=== PATIENT | male | born 1975 | race Caucasian/White ===

== ENCOUNTER 2016-11-05 16:18 | Inpatient (IN) | payer MEDICAID ==
[~2016-11-05] VITALS: Ht 167.6 cm; Wt 81.2 kg
[2016-11-05] MEDS ORDERED: SOD CHLORIDE 0.9% 1,000 ML IV STA (16:46)
--- NOTE | 2016-11-05 16:54 | ERD ---
ER Documentation Chief Complaint Date/Time DATE: 11/05/16 TIME: 16:50 Chief Complaint FEVER X2 WKS, POSSIBLE UTI HPI This patient is a 41-year-old male with past medical history of recurrent urinary tract infections presenting to the emergency department with complaints of dysuria ongoing intermittently for the past 2 weeks. Symptoms are worsening. The patient also reports fevers. He states he feels a burning sensation in his penis constantly, but this worsens with urination. These are similar symptoms he experienced in the past with urinary tract infections. Symptoms are relieved temporarily with ibuprofen. Last ibuprofen was taken approximately 5 hours ago. He states he took 300 mg at that time. He denies hematuria, flank pain, testicular pain, testicular trauma, nausea, vomiting, diarrhea, and other symptoms. He is not currently sexually active. Last sexual encounter was approximately 2 years ago. No other symptoms to report currently. He denies having a workup in the past for possible etiology of his recurrent UTIs. ROS All systems reviewed and are negative except as per history of present illness. Allergies Allergies: Coded Allergies: No Known Allergy (Unverified , 11/05/16) PMhx/Soc History of Surgery: No Anesthesia Reaction: No Hx Neurological Disorder: No Hx Respiratory Disorders: No Hx Cardiac Disorders: No Hx Psychiatric Problems: No Hx Miscellaneous Medical Probl: Yes (HTN, previous uti's) Hx Alcohol Use: No Hx Substance Use: No Hx Tobacco Use: No Smoking Status: Never smoker Physical Exam Vitals Vital Signs Date Time Temp Pulse Resp B/P Pulse Ox O2 Delivery O2 Flow Rate FiO2 11/05/16 16:21 103.3 122 20 131/73 97 Physical Exam Const: Ill-appearing male in no acute distress. Head: Atraumatic Eyes: Normal Conjunctiva ENT: Normal External Ears, Nose and Mouth. Neck: Full range of motion..~ No meningismus. Resp: Clear to auscultation bilaterally Cardio: Regular rate and rhythm, no murmurs Abd: Soft, mild tenderness to palpation of the left lower quadrant but no rebound tenderness or guarding, there is no McBurney's point tenderness, non distended. Normal bowel sounds Skin: No petechiae or rashes Back: No midline or flank tenderness Ext: No cyanosis, or edema Neur: Awake and alert Psych: Normal Mood and Affect Result Diagram: 11/05/16 1700 11/05/16 1700 Results 24 hrs Laboratory Tests Test 11/05/16 17:00 White Blood Count 16.310^3/ul Red Blood Count 3.8110^6/ul Hemoglobin 11.2g/dl Hematocrit 33.3% Mean Corpuscular Volume 87.4fl Mean Corpuscular Hemoglobin 29.4pg Mean Corpuscular Hemoglobin Concent 33.6g/dl Red Cell Distribution Width 12.2% Platelet Count 18627^3/UL Mean Platelet Volume 11.6fl Neutrophils % 84.6% Lymphocytes % 9.1% Monocytes % 5.5% Eosinophils % 0.1% Basophils % 0.3% Nucleated Red Blood Cells % 0.0/100WBC Neutrophils # 13.810^3/ul Lymphocytes # 1.510^3/ul Monocytes # 0.910^3/ul Eosinophils # 0.010^3/ul Basophils # 0.110^3/ul Nucleated Red Blood Cells # 0.010^3/ul Prothrombin Time 13.7Sec Prothrombin Time Ratio 1.1 INR International Normalized Ratio 1.05 Activated Partial Thromboplast Time 32.5Sec Urine Color YELLOW Urine Clarity CLOUDY Urine pH 5.0 Urine Specific [place] 1.014 Urine Ketones NEGATIVEmg/dL Urine Nitrite NEGATIVEmg/dL Urine Bilirubin NEGATIVEmg/dL Urine Urobilinogen NEGATIVEmg/dL Urine Leukocyte Esterase 2+Magan/ul Urine Microscopic RBC 12/HPF Urine Microscopic WBC > 182/HPF Urine Bacteria FEW/HPF Urine Hemoglobin 1+mg/dL Urine Glucose NEGATIVEmg/dL Urine Total Protein 2+mg/dl Sodium Level 140mmol/L Potassium Level 3.5mmol/L Chloride Level 96mmol/L Carbon Dioxide Level 23mmol/L Anion Gap 25 Blood Urea Nitrogen 27mg/dl Creatinine 2.06mg/dl Glucose Level 111mg/dl Lactic Acid Level 0.9mmol/L Calcium Level 9.8mg/dl Total Bilirubin 0.6mg/dl Direct Bilirubin 0.00mg/dl Indirect Bilirubin 0.6mg/dl Aspartate Amino Transf (AST/SGOT) 22IU/L Alanine Aminotransferase (ALT/SGPT) 29IU/L Alkaline Phosphatase 111IU/L Total Protein 8.4g/dl Albumin 4.9g/dl Globulin 3.50g/dl Albumin/Globulin Ratio 1.40 Lipase 42U/L Current Medications Medications (Trade) Dose Ordered Sig/Nay Route PRN Reason Start Time Stop Time Status Last Admin Dose Admin Sodium Chloride (NS) 1,000 ml @ 1,000 mls/hr Q1H STAT IV 11/05/16 16:46 11/05/16 17:45 DC 11/05/16 16:53 Ibuprofen (Motrin) 600 mg ONCE ONCE PO 11/05/16 17:00 11/05/16 17:01 DC 11/05/16 16:53 Acetaminophen (Tylenol Tab) 650 mg ONCE ONCE PO 11/05/16 17:00 11/05/16 17:01 DC 11/05/16 16:53 IV Flush 10 ml 10 ml STK-MED ONCE .ROUTE 11/05/16 17:35 11/05/16 17:36 DC Sodium Chloride (NS) 100 ml @ ud STK-MED ONCE .ROUTE 11/05/16 17:35 11/05/16 17:36 DC Iohexol 150 ml 150 ml STK-MED ONCE .ROUTE 11/05/16 17:35 11/05/16 17:36 DC Sodium Chloride (NS) 1,000 ml @ 1,000 mls/hr Q1H ONCE IV 11/05/16 18:30 11/05/16 19:29 11/05/16 18:27 Sodium Chloride 2510 ml 2,510 ml BOLUS OVER 2 HOURS STAT IV* 11/05/16 18:35 11/05/16 18:37 DC Cefepime HCl (Maxipime 2gm/50 ml (Pmx)) 50 ml @ 100 mls/hr ONCE STAT IVPB 11/05/16 18:35 11/05/16 19:04 Procedures/MDM EMERGENCY DEPARTMENT COURSE / MEDICAL DECISION MAKING: This is a 41-year-old male who comes to the emergency room secondary to complaints of fever and dysuria The patient was given p.o. Tylenol, p.o. ibuprofen, IV fluids in the department. On re-evaluation, the patient was feeling improved. Lab results reviewed. CBC: [] Chemistry: [] UA: [] Lipase: [] Lactic: [] Radiology: [] The primary diagnosis is []. Secondary diagnosis is [] I have low suspicion for [] at this time. Discharge: I have discussed the lab results and diagnostic findings with the patient and answered any questions or concerns. The patient was discharged with a prescription for []. The patient was advised to followup with their PMD in 1- 2 days and to return to the Emergency Department if there are any new or worsening symptoms. The patient understood and agreed with the diagnosis, treatment and plan. The patient is stable for discharge at this time. Departure Diagnosis: Primary Impression: Urinary tract bacterial infections Condition: WILLIAM Dey PA-C Nov 05, 2016 16:54
[2016-11-05] MEDS ORDERED: IBUPROFEN 600 MG TAB PO ONE (17:00)
[2016-11-05] MEDS ORDERED: ACETAMINOPHEN 325 MG TAB PO ONE (17:00)
[2016-11-05 17:24] LABS: ADD SCAN DIFF NO
[2016-11-05 17:26] LABS: BASOPHIL # 0.1 10^3/ul (0.0-0.1); BASOPHILS % 0.3 % (0.0-2.0); EOSINOPHILS % 0.1 % (0.0-7.0); HEMATOCRIT 33.3 % (42.0-52.0); HEMOGLOBIN 11.2 g/dl (14.0-18.0); LYMPHOCYTES # 1.5 10^3/ul (0.8-2.9); LYMPHOCYTES % 9.1 % (15.0-51.0); MEAN CORPUSCULAR HEMOGLOBIN 29.4 pg (29.0-33.0); MEAN CORPUSCULAR HGB CONC 33.6 g/dl (32.0-37.0); MEAN CORPUSCULAR VOLUME 87.4 fl (82.0-101.0); MEAN PLATELET VOLUME 11.6 fl (7.4-10.4); MONOCYTE # 0.9 10^3/ul (0.3-0.9); MONOCYTES % 5.5 % (0.0-11.0); NEUTROPHIL # 13.8 10^3/ul (1.6-7.5); NEUTROPHILS % 84.6 % (39.0-77.0); PLATELET COUNT 287 10^3/UL (140-415); RED BLOOD COUNT 3.81 10^6/ul (4.70-6.10); RED CELL DISTRIBUTION WIDTH 12.2 % (11.5-14.5); WHITE BLOOD COUNT 16.3 10^3/ul (4.8-10.8)
[2016-11-05 17:27] LABS: ADD UMIC YES; UR ASCORBIC ACID NEGATIVE (NEGATIVE); UR BACTERIA FEW /HPF (NONE SEEN); UR BILIRUBIN (Dip) NEGATIVE (NEGATIVE); UR BLOOD (Dip) 1+ mg/dL (NEGATIVE); UR CLARITY CLOUDY (CLEAR); UR COLOR YELLOW (YELLOW); UR GLUCOSE (Dip) NEGATIVE (NEGATIVE); UR KETONES (Dip) NEGATIVE (NEGATIVE); UR LEUKOCYTE ESTERASE (Dip) 2+ Leu/ul (NEGATIVE); UR NITRITE (Dip) NEGATIVE (NEGATIVE); UR RBC 12 /HPF (0-5); UR SPECIFIC GRAVITY (Dip) 1.014 (1.003-1.030); UR TOTAL PROTEIN (Dip) 2+ mg/dl (NEGATIVE); UR UROBILINOGEN (Dip) NEGATIVE (NEGATIVE)
[2016-11-05] MEDS ORDERED: SOD CHLORIDE 0.9% 100 ML ONE (17:35)
[2016-11-05] MEDS ORDERED: IOHEXOL 300MG/ML 150 ML BTL ONE (17:35)
[2016-11-05 17:42] LABS: INR 1.05; PARTIAL THROMBOPLASTIN TIME 32.5 Sec (25.0-35.0); PROTIME 13.7 Sec (12.2-14.2); PT RATIO 1.1
[2016-11-05 17:44] LABS: ALBUMIN 4.9 g/dl (3.3-4.9); ALBUMIN/GLOBULIN RATIO 1.4; BILIRUBIN,INDIRECT 0.6 mg/dl (0-1.1); BILIRUBIN,TOTAL 0.6 mg/dl (0.2-1.3); CALCIUM 9.8 mg/dl (8.4-10.2); CREATININE 2.06 mg/dl (0.61-1.24); POTASSIUM 3.5 mmol/L (3.5-5.1); TOTAL PROTEIN 8.4 g/dl (6.1-8.1)
--- NOTE | 2016-11-05 18:23 | RADRPT ---
PROCEDURE: CT Abdomen and Pelvis without contrast. CLINICAL INDICATION: Abdominal pain with dysuria. History of UTI. TECHNIQUE: CT scan of the abdomen and pelvis without contrast was performed without intravenous co ntrast. Coronal and sagittal reformatted images were obtained from the axial source images. Images were reviewed on a high-resolution PACS workstation. CTDI 10 mGy, DLP 545 mGy-cm One or more of the following dose reduction techniques were used: Automated exposure control Adjustment of the mA and/or kV according to patient size. Use of iterative reconstruction technique. COMPARISON: None. FINDINGS: The lung bases are clear. The heart size is normal. The aorta and its branches are normal in size and caliber. The kidneys are symmetric in size and density. There is mild bilateral perinephric fat stranding. Th ere is no nephroureterolithiasis or hydronephrosis. The ureters are normal in course and caliber. Evaluation of solid organs is limited due to the lack of intravenous contrast. However, the liver, g allbladder, pancreas, and adrenal glands are unremarkable. Several scattered punctate calcification s are visualized throughout the spleen. Evaluation of the gastrointestinal tract is limited due to the lack of oral contrast. The distal es ophagus is unremarkable. The stomach is partially decompressed. The small bowel loops are normal in caliber without evidence of small bowel obstruction. The colon is mostly decompressed. The append ix is not definitively visualized. There is no free intraperitoneal fluid or pneumoperitoneum. There is no mesenteric, retroperitoneal, or pelvic lymphadenopathy. The bladder is partially decompressed although grossly unremarkable. The prostate is unremarkable. The seminal vesicles are mildly prominent although homogeneous in appearance without a cyst or heter ogeneous mass. There is no pelvic free fluid. There are no acute fractures. There is minimal left convex curvature of the lumbar spine. RPTAT: ZZ IMPRESSION: 1. No acute intra-abdominal abnormality. No nephroureterolithiasis or hydronephrosis. 2. Scattered punctate calcifications throughout the spleen which can be seen with granulomatous dis ease. .Jayla John MD, Date Time Electronically viewed and signed by .Jayla John MD, on 11/05/2016 18:23 .T/
[2016-11-05] MEDS ORDERED: SOD CHLORIDE 0.9% 1,000 ML IV ONE (18:30)
[2016-11-05] MEDS ORDERED: SODIUM CHLORIDE 0.9% 1L BAG IV* STA (18:35)
[2016-11-05] MEDS ORDERED: CEFEPIME 2GM/50 ML (PMX) 50 ML IVPB STA (18:35)
[2016-11-05 19:00] VITALS: TEMP 99.5
--- NOTE | 2016-11-05 19:07 | ERA ---
ER Documentation Chief Complaint Date/Time DATE: 11/05/16 TIME: 19:07 Chief Complaint FEVER X2 WKS, POSSIBLE UTI HPI 41-year-old male ambulatory to the emergency department complaining of a 2 week history of subjective fevers with dysuria, polyuria and flank pain. No hematuria. Denies nausea, vomiting or diarrhea. History of multiple previous urinary tract infections over the last several years. Denies abdominal pain or back pain. Denies penile lesions, discharge, testicular pain or swelling. No skin rash. No swollen lymph nodes. No relieving or exacerbating factors. ROS All systems reviewed and are negative except as per history of present illness. Medications Home Meds Reported Medications Multivitamins* (Theragran*) 1 Tab Tab, 1 TAB PO DAILY, TAB 11/05/16 Acetaminophen* (Acetaminophen*) 325 Mg Tablet, 650 MG PO Q4H Y for PAIN AND OR ELEVATED TEMP, #30 TAB 11/05/16 Allergies Allergies: Coded Allergies: No Known Allergy (Unverified , 11/05/16) PMhx/Soc History of Surgery: No Anesthesia Reaction: No Hx Neurological Disorder: No Hx Respiratory Disorders: No Hx Cardiac Disorders: No Hx Psychiatric Problems: No Hx Miscellaneous Medical Probl: Yes (HTN, previous uti's) Hx Alcohol Use: No Hx Substance Use: No Hx Tobacco Use: No Smoking Status: Never smoker FmHx No stroke or cancer Physical Exam Vitals Vital Signs Date Time Temp Pulse Resp B/P Pulse Ox O2 Delivery O2 Flow Rate FiO2 11/05/16 19:00 99.5 83 21 102/57 99 Room Air 11/05/16 16:21 103.3 122 20 131/73 97 Physical Exam Const: Alert Head: Atraumatic Eyes: Normal Conjunctiva ENT: Normal External Ears, Nose and Mouth. Neck: Full range of motion. No meningismus. Resp: Clear to auscultation bilaterally Cardio: Regular rate and rhythm, no murmurs Abd: Soft, non tender, non distended. Normal bowel sounds Skin: No petechiae or rashes Back: Mild bilateral CVA tenderness. Ext: No cyanosis, or edema Neur: Awake and alert Psych: Normal Mood and Affect Result Diagram: 11/06/16 0415 11/06/16 0415 Results 24 hrs Laboratory Tests Test 11/05/16 17:00 11/05/16 18:45 White Blood Count 16.310^3/ul Red Blood Count 3.8110^6/ul Hemoglobin 11.2g/dl Hematocrit 33.3% Mean Corpuscular Volume 87.4fl Mean Corpuscular Hemoglobin 29.4pg Mean Corpuscular Hemoglobin Concent 33.6g/dl Red Cell Distribution Width 12.2% Platelet Count 73153^3/UL Mean Platelet Volume 11.6fl Neutrophils % 84.6% Lymphocytes % 9.1% Monocytes % 5.5% Eosinophils % 0.1% Basophils % 0.3% Nucleated Red Blood Cells % 0.0/100WBC Neutrophils # 13.810^3/ul Lymphocytes # 1.510^3/ul Monocytes # 0.910^3/ul Eosinophils # 0.010^3/ul Basophils # 0.110^3/ul Nucleated Red Blood Cells # 0.010^3/ul Prothrombin Time 13.7Sec Prothrombin Time Ratio 1.1 INR International Normalized Ratio 1.05 Activated Partial Thromboplast Time 32.5Sec Urine Color YELLOW Urine Clarity CLOUDY Urine pH 5.0 Urine Specific [place] 1.014 Urine Ketones NEGATIVEmg/dL Urine Nitrite NEGATIVEmg/dL Urine Bilirubin NEGATIVEmg/dL Urine Urobilinogen NEGATIVEmg/dL Urine Leukocyte Esterase 2+Magan/ul Urine Microscopic RBC 12/HPF Urine Microscopic WBC > 182/HPF Urine Bacteria FEW/HPF Urine Hemoglobin 1+mg/dL Urine Glucose NEGATIVEmg/dL Urine Total Protein 2+mg/dl Sodium Level 140mmol/L Potassium Level 3.5mmol/L Chloride Level 96mmol/L Carbon Dioxide Level 23mmol/L Anion Gap 25 Blood Urea Nitrogen 27mg/dl Creatinine 2.06mg/dl Glucose Level 111mg/dl Lactic Acid Level 0.9mmol/L 0.7mmol/L Calcium Level 9.8mg/dl Total Bilirubin 0.6mg/dl Direct Bilirubin 0.00mg/dl Indirect Bilirubin 0.6mg/dl Aspartate Amino Transf (AST/SGOT) 22IU/L Alanine Aminotransferase (ALT/SGPT) 29IU/L Alkaline Phosphatase 111IU/L Total Protein 8.4g/dl Albumin 4.9g/dl Globulin 3.50g/dl Albumin/Globulin Ratio 1.40 Lipase 42U/L Current Medications Medications (Trade) Dose Ordered Sig/Nay Route PRN Reason Start Time Stop Time Status Last Admin Dose Admin Sodium Chloride (NS) 1,000 ml @ 1,000 mls/hr Q1H STAT IV 11/05/16 16:46 11/05/16 17:45 DC 11/05/16 16:53 Ibuprofen (Motrin) 600 mg ONCE ONCE PO 11/05/16 17:00 11/05/16 17:01 DC 11/05/16 16:53 Acetaminophen (Tylenol Tab) 650 mg ONCE ONCE PO 11/05/16 17:00 11/05/16 17:01 DC 11/05/16 16:53 IV Flush 10 ml 10 ml STK-MED ONCE .ROUTE 11/05/16 17:35 11/05/16 17:36 DC Sodium Chloride (NS) 100 ml @ ud STK-MED ONCE .ROUTE 11/05/16 17:35 11/05/16 17:36 DC Iohexol 150 ml 150 ml STK-MED ONCE .ROUTE 11/05/16 17:35 11/05/16 17:36 DC Sodium Chloride (NS) 1,000 ml @ 1,000 mls/hr Q1H ONCE IV 11/05/16 18:30 11/05/16 19:29 DC 11/05/16 18:27 Sodium Chloride 2510 ml 2,510 ml BOLUS OVER 2 HOURS STAT IV* 11/05/16 18:35 11/05/16 18:37 DC 11/05/16 19:24 Cefepime HCl 50 ml @ 100 mls/hr ONCE STAT IVPB 11/05/16 18:35 11/05/16 19:04 DC 11/05/16 19:08 Sodium Chloride (NS) 1,000 ml @ 75 mls/hr [id number] IV 11/05/16 21:12 11/05/16 22:50 Ondansetron HCl (Zofran Inj) 4 mg ONCE STAT IV 11/05/16 21:13 11/05/16 21:14 DC PROCEDURE: CT Abdomen and Pelvis without contrast. CLINICAL INDICATION: Abdominal pain with dysuria. History of UTI. TECHNIQUE: CT scan of the abdomen and pelvis without contrast was performed without intravenous contrast. Coronal and sagittal reformatted images were obtained from the axial source images. Images were reviewed on a high- resolution PACS workstation. CTDI 10 mGy, DLP 545 mGy-cm One or more of the following dose reduction techniques were used: Automated exposure control Adjustment of the mA and/or kV according to patient size. Use of iterative reconstruction technique. COMPARISON: None. FINDINGS: The lung bases are clear. The heart size is normal. The aorta and its branches are normal in size and caliber. The kidneys are symmetric in size and density. There is mild bilateral perinephric fat stranding. There is no nephroureterolithiasis or hydronephrosis. The ureters are normal in course and caliber. Evaluation of solid organs is limited due to the lack of intravenous contrast. However, the liver, gallbladder, pancreas, and adrenal glands are unremarkable. Several scattered punctate calcifications are visualized throughout the spleen. Evaluation of the gastrointestinal tract is limited due to the lack of oral contrast. The distal esophagus is unremarkable. The stomach is partially decompressed. The small bowel loops are normal in caliber without evidence of small bowel obstruction. The colon is mostly decompressed. The appendix is not definitively visualized. There is no free intraperitoneal fluid or pneumoperitoneum. There is no mesenteric, retroperitoneal, or pelvic lymphadenopathy. The bladder is partially decompressed although grossly unremarkable. The prostate is unremarkable. The seminal vesicles are mildly prominent although homogeneous in appearance without a cyst or heterogeneous mass. There is no pelvic free fluid. There are no acute fractures. There is minimal left convex curvature of the lumbar spine. RPTAT: ZZ IMPRESSION: 1. No acute intra-abdominal abnormality. No nephroureterolithiasis or hydronephrosis. 2. Scattered punctate calcifications throughout the spleen which can be seen with granulomatous disease. .Jayla John MD, MD Date Time Electronically viewed and signed by .Jayla John MD, MD on 11/05/2016 18: 23 .T/ Procedures/MDM DOCUMENTS REVIEWED: ED nurse, No prior records MEDICAL DECISION MAKIN-year-old male ambulatory to the emergency department complaining of a 2 week history of subjective fevers with dysuria, polyuria and flank pain. Multiple SIRS criteria including fever, leukocytosis and tachycardia. Sepsis secondary to UTI/pyelonephritis. No hypotension, elevated lactate or criteria for severe sepsis or septic shock. 30cc/kg NS fluid bolus, lactate and antibiotics administered after cultures within 3 hours of arrival. Elevated BUN/Creatinine but no baseline available. Possible RACHAEL vs CRF. No CT evidence of ureterolithiasis, hydronephrosis or obstructive etiology. Admit to med/surg. Patient counseled regarding diagnosis, lab and imaging findings and plan for admission. CALLS/CONSULTS: Time: 20:45, Dr. Wagner, Recommends admission to med/surg. Patient Care Transitioned to: Time: 21:00, Dr. Wagner. Departure Diagnosis: Primary Impression: Acute pyelonephritis Additional Impressions: SIRS (systemic inflammatory response syndrome) Sepsis Qualified Code: A41.9 - Sepsis, due to unspecified organism RACHAEL (acute kidney injury) Condition: Serious ASHVIN MOREL MD Nov 05, 2016 19:07
--- NOTE | 2016-11-05 19:23 | RADRPT ---
PROCEDURE: XR, Chest. CLINICAL INDICATION: Cough/sepsis. TECHNIQUE: AP chest COMPARISON: None available. FINDINGS: There is no acute infiltrate in the lungs. No pleural effusion. The heart is not enlarged. IMPRESSION: 1. Unremarkable chest x-ray. RPTAT: GG .Logan Brizuela MD, Date Time Electronically viewed and signed by .Logan Brizuela MD, on 11/05/2016 19:23 .Y/
[2016-11-05] MEDS ORDERED: ACET325T45 PO (20:20)
[2016-11-05] MEDS ORDERED: MULTI PO (20:20)
[2016-11-05] MEDS: SOD CHLORIDE 0.9% 1,000 ML IV SCH ×2 (21:12→22:50)
[2016-11-05] MEDS ORDERED: ONDANSETRON 4 MG INJ IV STA (21:13)
--- NOTE | 2016-11-05 21:23 | HP ---
Date/Time of Note Date/Time of Note DATE: 11/05/16 TIME: 21:14 Assessment/Plan VTE Prophylaxis VTE Prophylaxis Intervention: LMWH Assessment/Plan Chief Complaint/Hosp Course This is a 41-year-old male being admitted to the [facility] floor for: #1 Urosepsis: Temperature 103.3 with a heart rate of 122 and an positive UA. Patient received cefepime in the ED. Will switch to Levaquin 750 mg IV every 24 hours. Urine culture was sent awaiting susceptibilities. Tylenol for fevers. #2 Bilateral flank pain: No signs of pyelonephritis on CT scan, will order renal ultrasound. Continue IV antibiotics at this time. #3 hyperlipidemia: Currently not on any medications. Check lipid levels. DVT GI prophylaxis: Lovenox, Protonix Further treatment strategy will be implemented as per the clinical course Problems: HPI/ROS Admit Date/Time Admit Date/Time Hx of Present Illness Chief complaint: Urinary infection 2 weeks This is a 41-year-old male ambulatory to the emergency department complaining of a 2 week history of subjective fevers with dysuria, polyuria and bilateral flank pain. No hematuria. Denies nausea, vomiting or diarrhea. History of multiple previous urinary tract infections over the last several years, including one approximately 2 weeks ago which resolved on its own without any antibiotics.. Denies abdominal pain. Denies penile lesions, discharge, testicular pain or swelling. No skin rash. No swollen lymph nodes. No relieving or exacerbating factors. Allergies: NKDA medications: None ROS Const: As per HPI Eyes : No pain discharge or redness or change in visual acuity ENT: No pain, sore throat, congestion, congestion, dysphagia or discharge Respiratory: No shortness of breath, cough, sputum, wheezing, or pleuritic pain Cardiovascular: No chest pain, palpitation, PND, or edema GI : no change in appetite, abdominal pain, nausea, vomiting, diarrhea, constipation, or change in the color his stool Genitourinary: As per HPI Musculoskeletal: No joint pain, back pain, neck pain, restricted range of motion in neck or joints Skin: No rash, bruising or hives Neuro: No headache, dizziness, syncope, seizure, focal weakness Endocrine: No polyuria, polydipsia, temperature intolerance Psych: No hallucination, depression, anxiety or suicidal ideation PMH/Family/Social Past Medical History History of UTIs, hyperlipidemia Past Surgical History Past Surgical Hx: no surgical history Family History Significant Family History: no pertinent family hx Social History Alcohol Use: none Smoking Status: Never smoker Drug Use: none Exam/Review of Systems Vital Signs Vitals Vital Signs Date Time Temp Pulse Resp B/P Pulse Ox O2 Delivery O2 Flow Rate FiO2 11/05/16 19:00 99.5 83 21 102/57 99 Room Air Exam Exam General: Patient is a well-developed well-nourished male in no acute distress HEENT: Atraumatic, normocephalic. The pupils are equal, round and reactive. Extraocular motor are intact Neck: Supple with full range of motion. No rigidity or meningismus Chest: Nontender Lungs: Clear to auscultation bilaterally no crackles rales or wheezing Heart: Normal S1-S2, Regular rhythm and rate. No murmur, S3, or S4 Abdomen: Soft, mild suprapubic tenderness, normal bowel sounds Extremities: Normal to inspection, no edema no cyanosis Neurologic: Normal mental status, speech normal, cranial nerves II through XII are intact, motor and sensory are intact, no focal weakness Genitourinary: Bilateral CVA tenderness to palpation. Additional Comments PROCEDURE: CT Abdomen and Pelvis without contrast. CLINICAL INDICATION: Abdominal pain with dysuria. History of UTI. TECHNIQUE: CT scan of the abdomen and pelvis without contrast was performed without intravenous contrast. Coronal and sagittal reformatted images were obtained from the axial source images. Images were reviewed on a high- resolution PACS workstation. CTDI 10 mGy, DLP 545 mGy-cm One or more of the following dose reduction techniques were used: Automated exposure control Adjustment of the mA and/or kV according to patient size. Use of iterative reconstruction technique. COMPARISON: None. FINDINGS: The lung bases are clear. The heart size is normal. The aorta and its branches are normal in size and caliber. The kidneys are symmetric in size and density. There is mild bilateral perinephric fat stranding. There is no nephroureterolithiasis or hydronephrosis. The ureters are normal in course and caliber. Evaluation of solid organs is limited due to the lack of intravenous contrast. However, the liver, gallbladder, pancreas, and adrenal glands are unremarkable. Several scattered punctate calcifications are visualized throughout the spleen. Evaluation of the gastrointestinal tract is limited due to the lack of oral contrast. The distal esophagus is unremarkable. The stomach is partially decompressed. The small bowel loops are normal in caliber without evidence of small bowel obstruction. The colon is mostly decompressed. The appendix is not definitively visualized. There is no free intraperitoneal fluid or pneumoperitoneum. There is no mesenteric, retroperitoneal, or pelvic lymphadenopathy. The bladder is partially decompressed although grossly unremarkable. The prostate is unremarkable. The seminal vesicles are mildly prominent although homogeneous in appearance without a cyst or heterogeneous mass. There is no pelvic free fluid. There are no acute fractures. There is minimal left convex curvature of the lumbar spine. RPTAT: ZZ IMPRESSION: 1. No acute intra-abdominal abnormality. No nephroureterolithiasis or hydronephrosis. 2. Scattered punctate calcifications throughout the spleen which can be seen with granulomatous disease. PROCEDURE: XR, Chest. CLINICAL INDICATION: Cough/sepsis. TECHNIQUE: AP chest COMPARISON: None available. FINDINGS: There is no acute infiltrate in the lungs. No pleural effusion. The heart is not enlarged. IMPRESSION: 1. Unremarkable chest x-ray. RPTAT: GG .Logan Brizuela MD, MD Date Time Electronically viewed and signed by .Logan Brizuela MD, MD on 11/05/2016 19:23 Labs Result Diagram: 11/05/16 1700 11/05/16 1700 SILVANA ASTUDILLO Nov 05, 2016 21:23
[2016-11-05] MEDS ORDERED: morphine 2 MG INJ IV PRN (21:30)
[2016-11-05] MEDS ORDERED: NACL 0.9% 3 ML SYG IV SCH (21:30)
[2016-11-05] MEDS ORDERED: ONDANSETRON 4 MG INJ IV PRN ×2 (21:30)
[2016-11-05] MEDS ORDERED: ACETAMINOPHEN 325 MG TAB PO PRN (21:30)
[2016-11-05] MEDS: LEVOFLOXACIN 750MG/D5W (PMX) 150 ML IVPB SCH ×2 (22:00→23:26)
[2016-11-05 22:09] VITALS: Ht 167.6 cm; Wt 81.2 kg
[2016-11-05 22:31] VITALS: BP 121/74; PULSE 91; RESP 20
[2016-11-06 05:28] LABS: ADD SCAN DIFF NO
[2016-11-06 05:38] LABS: BASOPHILS % 0.2 % (0.0-2.0); HEMATOCRIT 28.9 % (42.0-52.0); HEMOGLOBIN 9.5 g/dl (14.0-18.0); LYMPHOCYTES # 1.1 10^3/ul (0.8-2.9); LYMPHOCYTES % 6.5 % (15.0-51.0); MEAN CORPUSCULAR HEMOGLOBIN 29.6 pg (29.0-33.0); MEAN CORPUSCULAR HGB CONC 32.9 g/dl (32.0-37.0); MEAN PLATELET VOLUME 11.7 fl (7.4-10.4); NEUTROPHIL # 14.3 10^3/ul (1.6-7.5); NEUTROPHILS % 86.5 % (39.0-77.0); PLATELET COUNT 232 10^3/UL (140-415); RED BLOOD COUNT 3.21 10^6/ul (4.70-6.10); RED CELL DISTRIBUTION WIDTH 12.4 % (11.5-14.5); WHITE BLOOD COUNT 16.6 10^3/ul (4.8-10.8)
[2016-11-06] MEDS ORDERED: PANTOPRAZOLE 40 MG INJ IV SCH (06:00)
[2016-11-06 06:09] LABS: ALBUMIN 3.7 g/dl (3.3-4.9); ALBUMIN/GLOBULIN RATIO 1.37; BILIRUBIN,INDIRECT 0.6 mg/dl (0-1.1); BILIRUBIN,TOTAL 0.6 mg/dl (0.2-1.3); CALCIUM 8.4 mg/dl (8.4-10.2); CREATININE 1.95 mg/dl (0.61-1.24); POTASSIUM 3.5 mmol/L (3.5-5.1); TOTAL PROTEIN 6.4 g/dl (6.1-8.1)
[2016-11-06 07:00] VITALS: BP 116/63; RESP 20
--- NOTE | 2016-11-06 07:33 | RADRPT ---
PROCEDURE: Retroperitoneal US. CLINICAL INDICATION: Flank pain TECHNIQUE: Multiple sonographic images of the kidneys and retroperitoneum were obtained. The imag es were reviewed on a PACS workstation. COMPARISON: 11/05/2016 FINDINGS: The kidneys are normal in size, contour, cortical thickness and cortical echogenicity. The right kidney measures 10.4 cm. The left kidney measures 11.8 cm. No kidney stones are visualized. There is no evidence for hydronephrosis. The urinary bladder is normal. The aorta and IVC were not seen. RPTAT: AA IMPRESSION: Unremarkable retroperitoneal ultrasound. .Dennys Stover MD, Date Time Electronically viewed and signed by .Dennys Stover MD, MD on 11/06/2016 07:32 .S/
[2016-11-06] MEDS: ACETAMINOPHEN 325 MG TAB PO PRN ×3 (08:45→23:57)
[2016-11-06] MEDS ORDERED: ENOXAPARIN 40 MG/0.4 ML SYG SC SCH (09:00)
--- NOTE | 2016-11-06 10:22 | PN ---
Date/Time of Note Date/Time of Note DATE: 11/06/16 TIME: 10:20 Assessment/Plan VTE Prophylaxis VTE Prophylaxis Intervention: heparin Lines/Catheters IV C[facility]ter Type (from [facility]): Peripheral IV Urinary Cath still in place: No Assessment/Plan Chief Complaint/Hosp Course 1. Sepsis secondary to underlying urinary tract infection. No evidence of any septic shock. Continue antimicrobials. Await final cultures. 2. Dyslipidemia. Not on any statins. Will check fasting lipid panel. 3. Acute nonoliguric kidney injury. Unknown baseline creatinine. Avoid nephrotoxic medications. Nephrology to follow the patient. 4. Normocytic, normochromic anemia. Etiology unclear. Will obtain an iron panel. Will monitor the H&H closely. 5. Fluids, electrolytes, and nutrition. Low-cholesterol diet. 6. DVT prophylaxis with subcutaneous heparin. 7. Gastrointestinal prophylaxis. Proton pump inhibitors. 8. Plan. Continue empiric antibiotics. Await final cultures. Await nephrology recommendations. Case discussed with Dr. Guido. Problems: Subjective 24 Hr Interval Summary Free Text/Dictation The patient continues to have febrile illness. Denies any flank or abdominal pain. Denies any diarrhea. Denies any dysuria. Exam/Review of Systems Vital Signs Vitals Vital Signs Date Time Temp Pulse Resp B/P Pulse Ox O2 Delivery O2 Flow Rate FiO2 11/06/16 07:00 101.1 95 20 116/63 98 11/05/16 22:31 Room Air Intake and Output 11/05/16 11/05/16 11/06/16 15:00 23:00 07:00 Intake Total 1725 ml Output Total 1500 ml Balance 225 ml Exam General: Adequately build 41 year-old male lying in bed in no apparent distress. HEENT: Normocephalic, atraumatic. Eyes: Anicteric sclerae, conjunctivae clear. ENT: Nasal septum midline, oral mucosa moist. Neck supple, no JVD noticed. Respiratory: Bilaterally clear breath sounds. No use of accessory muscles of respiration. No adventitious breath sounds. Cardiovascular: S1, S2 heard. No murmurs or gallops. Abdomen: Soft, nontender, and nondistended. Bowel sounds positive in all 4 quadrants. Genitourinary: Deferred. Extremities: No cyanosis, no clubbing, no edema. Peripheral pulses palpable. Neurologic: Cranial nerves II through XII grossly intact. The patient is awake, alert, and oriented. Skin: Normal skin turgor. No skin rashes. Results Result Diagram: 11/06/16 0415 11/06/16 0415 Results 24 hrs Laboratory Tests Test 11/05/16 17:00 11/05/16 18:45 11/05/16 23:04 11/06/16 04:15 White Blood Count 16.3 H 16.6 H Red Blood Count 3.81 L 3.21 L Hemoglobin 11.2 L 9.5 L Hematocrit 33.3 L 28.9 L Mean Corpuscular Volume 87.4 90.0 Mean Corpuscular Hemoglobin 29.4 29.6 Mean Corpuscular Hemoglobin Concent 33.6 32.9 Red Cell Distribution Width 12.2 12.4 Platelet Count 287 232 Mean Platelet Volume 11.6 H 11.7 H Neutrophils % 84.6 H 86.5 H Lymphocytes % 9.1 L 6.5 L Monocytes % 5.5 6.0 Eosinophils % 0.1 0.0 Basophils % 0.3 0.2 Nucleated Red Blood Cells % 0.0 0.0 Neutrophils # 13.8 H 14.3 H Lymphocytes # 1.5 1.1 Monocytes # 0.9 1.0 H Eosinophils # 0.0 0.0 Basophils # 0.1 0.0 Nucleated Red Blood Cells # 0.0 0.0 Prothrombin Time 13.7 Prothrombin Time Ratio 1.1 INR International Normalized Ratio 1.05 Activated Partial Thromboplast Time 32.5 Urine Color YELLOW Urine Clarity CLOUDY A Urine pH 5.0 Urine Specific [place] 1.014 Urine Ketones NEGATIVE Urine Nitrite NEGATIVE Urine Bilirubin NEGATIVE Urine Urobilinogen NEGATIVE Urine Leukocyte Esterase 2+ H Urine Microscopic RBC 12 H Urine Microscopic WBC > 182 H Urine Bacteria FEW A Urine Hemoglobin 1+ H Urine Glucose NEGATIVE Urine Total Protein 2+ H Sodium Level 140 141 Potassium Level 3.5 3.5 Chloride Level 96 L 105 Carbon Dioxide Level 23 21 Anion Gap 25 H 19 H Blood Urea Nitrogen 27 H 24 H Creatinine 2.06 H 1.95 H Glucose Level 111 96 Lactic Acid Level 0.9 0.7 1.5 Calcium Level 9.8 8.4 Total Bilirubin 0.6 0.6 Direct Bilirubin 0.00 0.00 Indirect Bilirubin 0.6 0.6 Aspartate Amino Transf (AST/SGOT) 22 17 Alanine Aminotransferase (ALT/SGPT) 29 24 Alkaline Phosphatase 111 81 Total Protein 8.4 H 6.4 # Albumin 4.9 3.7 # Globulin 3.50 H 2.70 Albumin/Globulin Ratio 1.40 1.37 Lipase 42 Medications Medications Current Medications Sodium Chloride (NS) 1,000 ml @ 75 mls/hr [id number] IV Last administered on 22:50; Admin Dose 75 MLS/HR; Start 11/05/16 at 21:12 Ondansetron HCl (Zofran Inj) 4 mg Q6H PRN IV NAUSEA AND/OR VOMITING; Start 11/05 at 21:30 Acetaminophen (Tylenol Tab) 650 mg Q6H PRN PO PAIN LEVEL 1-3 OR FEVER Last administered on 11/06/16 08:45; Admin Dose 650 MG; Start 11/05/16 at 21:30 Morphine Sulfate (morphine) 2 mg Q4H PRN IV SEVERE PAIN LEVEL 7-10; Start at 21:30 Pantoprazole (Protonix Iv) 40 mg DAILY@06 IV Last administered on 11/06/16 05: 06; Admin Dose 40 MG; Start 11/06/16 at 06:00 Heparin Sodium (Porcine) 5000 unit 5,000 unit BID SC ; Start 11/06/16 at 21:00 Ceftriaxone Sodium (Rocephin) 50 ml @ 100 mls/hr Q24H IVPB ; Start 11/06/16 at 10:00 RENETTA FOLEY NP Nov 06, 2016 10:22
[2016-11-06 10:38] LABS: CHOL/HDL RATIO 5.7 RATIO
--- NOTE | 2016-11-06 10:55 | CONS ---
Date/Time of Note Date/Time of Note DATE: 11/06/16 TIME: 10:49 Assessment/Plan Assessment/Plan Chief Complaint/Hosp Course 1. Renal failure, possible AK I versus CKD. Underlying etiology is unclear can be secondary to pyelonephritis. Possibility of tubular injury is a consideration. Questionable NSAID use -Urinalysis shows pyuria and proteinuria consistent with UTI. Renal ultrasound shows no evidence of obstruction and normal renal parenchyma. -Plan is to repeat UA will evaluate under microscopy, will check a protein creatinine ratio albumin creatinine ratio -We will continue patient IV hydration. -Continue treat underlying UTI. -Monitor closely 2. Recurrent UTI/pyelonephritis. -Continue antibiotics, consider urologic evaluation 3. Anemia monitor H&H levels 4. Mineral bone disorder monitor calcium phosphorus levels Thank you Get[place]w for this interesting consult will follow the patient with you Problems: Consultation Date/Type/Reason Admit Date/Time Reason for Consultation AK I possible CKD Hx of Present Illness This is a 41-year-old male ambulatory to the emergency department complaining of a 2 week history of subjective fevers with dysuria, polyuria and bilateral flank pain. No hematuria. Denies nausea, vomiting or diarrhea. History of multiple previous urinary tract infections over the last several years, including one approximately 2 weeks ago which resolved on its own without any antibiotics.. Denies abdominal pain. Denies penile lesions, discharge, testicular pain or swelling. No skin rash. No swollen lymph nodes. No relieving or exacerbating factors. In terms of the patient's renal history he states that he has had some problems with the kidneys. He describes these problems is recurrent yeast infections. He denies being told that he has chronic kidney disease or renal failure. He denies any rashes hemoptysis hematemesis hematochezia. Denies any recent contrast exposure, denies NSAID use 14 point review of systems conducted pertinent positives in HPI otherwise negative Past Medical History Recurrent UTI Past Surgical History None Past Surgical Hx: no surgical history Social History Alcohol Use: none Smoking Status: Never smoker Drug Use: none Exam/Review of Systems Vital Signs Vitals Vital Signs Date Time Temp Pulse Resp B/P Pulse Ox O2 Delivery O2 Flow Rate FiO2 11/06/16 07:00 101.1 95 20 116/63 98 11/05/16 22:31 Room Air Intake and Output 11/05/16 11/05/16 11/06/16 15:00 23:00 07:00 Intake Total 1725 ml Output Total 1500 ml Balance 225 ml Exam HEENT. Head is normocephalic pupils are reactive Neck is supple Cardiovascular regular rate no gallops clicks lungs show diminished breath sounds at the base abdomen soft nontender palpation rebound guarding positive CVA tenderness extremities are negative for clubbing cyanosis no edema dermatologically no rashes musculoskeletal no joint effusion neurologically no focal deficits Results Result Diagram: 11/06/16 0415 11/06/16 0415 Results 24 hrs Laboratory Tests Test 11/05/16 17:00 11/05/16 18:45 11/05/16 23:04 11/06/16 04:15 White Blood Count 16.3 H 16.6 H Red Blood Count 3.81 L 3.21 L Hemoglobin 11.2 L 9.5 L Hematocrit 33.3 L 28.9 L Mean Corpuscular Volume 87.4 90.0 Mean Corpuscular Hemoglobin 29.4 29.6 Mean Corpuscular Hemoglobin Concent 33.6 32.9 Red Cell Distribution Width 12.2 12.4 Platelet Count 287 232 Mean Platelet Volume 11.6 H 11.7 H Neutrophils % 84.6 H 86.5 H Lymphocytes % 9.1 L 6.5 L Monocytes % 5.5 6.0 Eosinophils % 0.1 0.0 Basophils % 0.3 0.2 Nucleated Red Blood Cells % 0.0 0.0 Neutrophils # 13.8 H 14.3 H Lymphocytes # 1.5 1.1 Monocytes # 0.9 1.0 H Eosinophils # 0.0 0.0 Basophils # 0.1 0.0 Nucleated Red Blood Cells # 0.0 0.0 Prothrombin Time 13.7 Prothrombin Time Ratio 1.1 INR International Normalized Ratio 1.05 Activated Partial Thromboplast Time 32.5 Urine Color YELLOW Urine Clarity CLOUDY A Urine pH 5.0 Urine Specific [place] 1.014 Urine Ketones NEGATIVE Urine Nitrite NEGATIVE Urine Bilirubin NEGATIVE Urine Urobilinogen NEGATIVE Urine Leukocyte Esterase 2+ H Urine Microscopic RBC 12 H Urine Microscopic WBC > 182 H Urine Bacteria FEW A Urine Hemoglobin 1+ H Urine Glucose NEGATIVE Urine Total Protein 2+ H Sodium Level 140 141 Potassium Level 3.5 3.5 Chloride Level 96 L 105 Carbon Dioxide Level 23 21 Anion Gap 25 H 19 H Blood Urea Nitrogen 27 H 24 H Creatinine 2.06 H 1.95 H Glucose Level 111 96 Lactic Acid Level 0.9 0.7 1.5 Calcium Level 9.8 8.4 Total Bilirubin 0.6 0.6 Direct Bilirubin 0.00 0.00 Indirect Bilirubin 0.6 0.6 Aspartate Amino Transf (AST/SGOT) 22 17 Alanine Aminotransferase (ALT/SGPT) 29 24 Alkaline Phosphatase 111 81 Total Protein 8.4 H 6.4 # Albumin 4.9 3.7 # Globulin 3.50 H 2.70 Albumin/Globulin Ratio 1.40 1.37 Lipase 42 Triglycerides Level 71 Cholesterol Level 126 LDL Cholesterol, Calculated 90 HDL Cholesterol 22 L Cholesterol/HDL Ratio 5.7 Thyroid Stimulating Hormone (TSH) Pending Medications Medications Current Medications Sodium Chloride (NS) 1,000 ml @ 75 mls/hr [id number] IV Last administered on 22:50; Admin Dose 75 MLS/HR; Start 11/05/16 at 21:12 Ondansetron HCl (Zofran Inj) 4 mg Q6H PRN IV NAUSEA AND/OR VOMITING; Start 11/05 at 21:30 Acetaminophen (Tylenol Tab) 650 mg Q6H PRN PO PAIN LEVEL 1-3 OR FEVER Last administered on 11/06/16 08:45; Admin Dose 650 MG; Start 11/05/16 at 21:30 Morphine Sulfate (morphine) 2 mg Q4H PRN IV SEVERE PAIN LEVEL 7-10; Start at 21:30 Pantoprazole (Protonix Iv) 40 mg DAILY@06 IV Last administered on 11/06/16 05: 06; Admin Dose 40 MG; Start 11/06/16 at 06:00 Heparin Sodium (Porcine) 5000 unit 5,000 unit BID SC ; Start 11/06/16 at 21:00 Ceftriaxone Sodium (Rocephin) 50 ml @ 100 mls/hr Q24H IVPB ; Start 11/06/16 at 10:00 LASHAUN HERNANDEZ DO Nov 06, 2016 10:55
[2016-11-06 11:12] LABS: THYROID STIMULATING HORMONE 1.99 MIU/L (0.465-4.680)
[2016-11-06] MEDS: CEFTRIAXONE 1 GM/50 ML (PMX) 50 ML IVPB SCH (11:34)
[2016-11-06 12:14] LABS: TOTAL IRON BINDING CAPACITY 237 ug/dl (241-421)
[2016-11-06 12:24] LABS: IRON < 10 ug/dl (35-150)
[2016-11-06] MEDS: SOD CHLORIDE 0.9% 1,000 ML IV SCH (14:13)
[2016-11-06 19:18] VITALS: BP 111/61; RESP 18
[2016-11-06] MEDS ORDERED: IBUPROFEN 600 MG TAB PO PRN (19:30)
[2016-11-06] MEDS: HEPARIN 5,000 UNIT/0.5 ML VIAL SC SCH (20:51)
[2016-11-07] MEDS: SOD CHLORIDE 0.9% 1,000 ML IV SCH ×3 (03:45→22:53)
[2016-11-07 05:16] LABS: ADD SCAN DIFF NO
[2016-11-07 05:22] LABS: BASOPHILS % 0.2 % (0.0-2.0); EOSINOPHILS % 0.1 % (0.0-7.0); HEMATOCRIT 28.8 % (42.0-52.0); HEMOGLOBIN 9.6 g/dl (14.0-18.0); LYMPHOCYTES # 1.4 10^3/ul (0.8-2.9); LYMPHOCYTES % 16.5 % (15.0-51.0); MEAN CORPUSCULAR HEMOGLOBIN 29.5 pg (29.0-33.0); MEAN CORPUSCULAR HGB CONC 33.3 g/dl (32.0-37.0); MEAN CORPUSCULAR VOLUME 88.6 fl (82.0-101.0); MEAN PLATELET VOLUME 11.5 fl (7.4-10.4); MONOCYTE # 0.7 10^3/ul (0.3-0.9); MONOCYTES % 8.2 % (0.0-11.0); NEUTROPHIL # 6.2 10^3/ul (1.6-7.5); NEUTROPHILS % 74.8 % (39.0-77.0); PLATELET COUNT 187 10^3/UL (140-415); RED BLOOD COUNT 3.25 10^6/ul (4.70-6.10); RED CELL DISTRIBUTION WIDTH 12.3 % (11.5-14.5); WHITE BLOOD COUNT 8.3 10^3/ul (4.8-10.8)
[2016-11-07 05:39] LABS: MAGNESIUM 1.3 mg/dl (1.7-2.5); PHOSPHORUS 2.9 mg/dl (2.5-4.9)
[2016-11-07 05:46] LABS: ALBUMIN 3.9 g/dl (3.3-4.9); ALBUMIN/GLOBULIN RATIO 1.44; BILIRUBIN,INDIRECT 0.1 mg/dl (0-1.1); BILIRUBIN,TOTAL 0.1 mg/dl (0.2-1.3); CALCIUM 8.6 mg/dl (8.4-10.2); CREATININE 1.74 mg/dl (0.61-1.24); POTASSIUM 3.5 mmol/L (3.5-5.1); TOTAL PROTEIN 6.6 g/dl (6.1-8.1)
[2016-11-07] MEDS ORDERED: PANTOPRAZOLE (EC) 40 MG TAB PO SCH (06:00)
[2016-11-07 06:14] LABS: ADD UMIC YES; UR ASCORBIC ACID NEGATIVE (NEGATIVE); UR BACTERIA FEW /HPF (NONE SEEN); UR BILIRUBIN (Dip) NEGATIVE (NEGATIVE); UR BLOOD (Dip) 1+ mg/dL (NEGATIVE); UR CLARITY CLEAR (CLEAR); UR COLOR YELLOW (YELLOW); UR GLUCOSE (Dip) NEGATIVE (NEGATIVE); UR KETONES (Dip) NEGATIVE (NEGATIVE); UR LEUKOCYTE ESTERASE (Dip) TRACE Leu/ul (NEGATIVE); UR NITRITE (Dip) NEGATIVE (NEGATIVE); UR RBC 10 /HPF (0-5); UR SPECIFIC GRAVITY (Dip) 1.011 (1.003-1.030); UR TOTAL PROTEIN (Dip) NEGATIVE (NEGATIVE); UR UROBILINOGEN (Dip) 1+ mg/dL (NEGATIVE)
[2016-11-07 08:12] VITALS: BP 110/63; RESP 16
--- NOTE | 2016-11-07 08:24 | PN ---
Date/Time of Note Date/Time of Note DATE: 11/07/16 TIME: 08:21 Assessment/Plan Lines/Catheters IV Catheter Type (from [facility]): Peripheral IV Urinary Cath still in place: No Assessment/Plan Chief Complaint/Hosp Course 1. Renal failure, possible AK I versus CKD. Underlying etiology is unclear can be secondary to pyelonephritis. Possibility of tubular injury is a consideration. Questionable NSAID use -Urinalysis shows pyuria and proteinuria consistent with UTI. Renal ultrasound shows no evidence of obstruction and normal renal parenchyma. -Repeat urinalysis shows improvement of pyuria. Urine protein creatinine ratio approximately 300 mg gram creatinine. -Renal function slowly improving with IV hydration -Continue current treatment plan -Continue treat underlying UTI. -Monitor closely 2. Recurrent UTI/pyelonephritis. -Continue antibiotics, consider urologic evaluation 3. Anemia monitor H&H levels 4. Mineral bone disorder monitor calcium phosphorus levels 5. Hypomagnesemia. Will replete with magnesium sulfate Problems: Subjective 24 Hr Interval Summary Free Text/Dictation Patient seen and examined. Patient with fever overnight Tolerating antibiotic Exam/Review of Systems Vital Signs Vitals Vital Signs Date Time Temp Pulse Resp B/P Pulse Ox O2 Delivery O2 Flow Rate FiO2 11/07/16 08:12 99.6 74 16 110/63 99 11/05/16 22:31 Room Air Intake and Output 11/06/16 11/06/16 11/07/16 15:00 23:00 07:00 Intake Total 685 ml 1140 ml 1330 ml Output Total 1200 ml 1000 ml Balance 685 ml -60 ml 330 ml Exam HEENT: Head is normocephalic. NECK: Supple. HEART: Irregular LUNGS: Show diminished breath sounds at base. ABDOMEN: Soft, nontender to palpation without rebound or guarding. EXTREMITIES: Negative for clubbing, cyanosis. DERMATOLOGIC: No rashes. MUSCULOSKELETAL: No joint effusions, NEUROLOGIC: No change in exam. Results Result Diagram: 11/07/16 0445 11/07/16 0445 Results 24 hrs Laboratory Tests Test 11/06/16 11:00 11/07/16 02:30 11/07/16 04:45 Iron Level < 10 L Total Iron Binding Capacity 237 L Percent Iron Saturation Free Thyroxine 1.03 Parathyroid Hormone (Intact) Urine Color YELLOW Urine Clarity CLEAR Urine pH 6.0 Urine Specific [place] 1.011 Urine Ketones NEGATIVE Urine Nitrite NEGATIVE Urine Bilirubin NEGATIVE Urine Urobilinogen 1+ H Urine Leukocyte Esterase TRACE A Urine Microscopic RBC 10 H Urine Microscopic WBC 10 H Urine Bacteria FEW A Urine Hemoglobin 1+ H Urine Random Creatinine 70.07 Urine Random Sodium 124 H Urine Glucose NEGATIVE Urine Total Protein 23.0 H White Blood Count 8.3 # Red Blood Count 3.25 L Hemoglobin 9.6 L Hematocrit 28.8 L Mean Corpuscular Volume 88.6 Mean Corpuscular Hemoglobin 29.5 Mean Corpuscular Hemoglobin Concent 33.3 Red Cell Distribution Width 12.3 Platelet Count 187 Mean Platelet Volume 11.5 H Neutrophils % 74.8 Lymphocytes % 16.5 Monocytes % 8.2 Eosinophils % 0.1 Basophils % 0.2 Nucleated Red Blood Cells % 0.0 Neutrophils # 6.2 Lymphocytes # 1.4 Monocytes # 0.7 Eosinophils # 0.0 Basophils # 0.0 Nucleated Red Blood Cells # 0.0 Sodium Level 137 Potassium Level 3.5 Chloride Level 105 Carbon Dioxide Level 24 Anion Gap 12 # Blood Urea Nitrogen 18 Creatinine 1.74 H Glucose Level 99 Calcium Level 8.6 Phosphorus Level 2.9 Magnesium Level 1.3 L Total Bilirubin 0.1 L Direct Bilirubin 0.00 Indirect Bilirubin 0.1 Aspartate Amino Transf (AST/SGOT) 34 # Alanine Aminotransferase (ALT/SGPT) 50 Alkaline Phosphatase 104 Total Protein 6.6 Albumin 3.9 Globulin 2.70 Albumin/Globulin Ratio 1.44 Medications Medications Current Medications Sodium Chloride (NS) 1,000 ml @ 75 mls/hr [id number] IV Last administered on 03:45; Admin Dose 75 MLS/HR; Start 11/05/16 at 21:12 Ondansetron HCl (Zofran Inj) 4 mg Q6H PRN IV NAUSEA AND/OR VOMITING; Start 11/05 at 21:30 Acetaminophen (Tylenol Tab) 650 mg Q6H PRN PO PAIN LEVEL 1-3 OR FEVER Last administered on 11/06/16 23:57; Admin Dose 650 MG; Start 11/05/16 at 21:30 Morphine Sulfate (morphine) 2 mg Q4H PRN IV SEVERE PAIN LEVEL 7-10; Start at 21:30 Heparin Sodium (Porcine) 5000 unit 5,000 unit BID SC Last administered on 20:51; Admin Dose 5,000 UNIT; Start 11/06/16 at 21:00 Ceftriaxone Sodium (Rocephin) 50 ml @ 100 mls/hr Q24H IVPB Last administered on 11/06/16 11:34; Admin Dose 100 MLS/HR; Start 11/06/16 at 10:00 Pantoprazole (Protonix Tab) 40 mg DAILY@06 PO Last administered on 11/07/16 05: 50; Admin Dose 40 MG; Start 11/07/16 at 06:00 Ibuprofen (Motrin) 600 mg Q6H PRN PO FEVER; Start 11/06/16 at 19:30 LASHAUN HERNANDEZ DO Nov 07, 2016 08:23
[2016-11-07] MEDS: HEPARIN 5,000 UNIT/0.5 ML VIAL SC SCH ×2 (08:30→21:14)
[2016-11-07] MEDS ORDERED: MAGNESIUM SULFATE 1 GM/D5W 100 ML IVPB ONE (09:30)
[2016-11-07] MEDS: CEFTRIAXONE 1 GM/50 ML (PMX) 50 ML IVPB SCH (09:48)
--- NOTE | 2016-11-07 13:07 | PN ---
Date/Time of Note Date/Time of Note DATE: 11/07/16 TIME: 13:04 Assessment/Plan VTE Prophylaxis VTE Prophylaxis Intervention: LMWH Lines/Catheters IV Catheter Type (from [facility]): Peripheral IV Urinary Cath still in place: No Assessment/Plan Chief Complaint/Hosp Course S- stable O- vss PE no pallor reg s1ss2 reg; no m r g ctab bs+ nt nd; no r/r/g ext no edema A/P 1) ESBL Sepsis; arrange imipenem IV/ home health for 10days; dc home. outpt urology? 2) Ac renal failure; stable, improved 3) Anemia Problems: Exam/Review of Systems Vital Signs Vitals Vital Signs Date Time Temp Pulse Resp B/P Pulse Ox O2 Delivery O2 Flow Rate FiO2 11/07/16 08:12 99.6 74 16 110/63 99 11/05/16 22:31 Room Air Intake and Output 11/06/16 11/06/16 11/07/16 15:00 23:00 07:00 Intake Total 685 ml 1140 ml 1330 ml Output Total 1200 ml 1000 ml Balance 685 ml -60 ml 330 ml Results Result Diagram: 11/07/16 0445 11/07/16 0445 Results 24 hrs Laboratory Tests Test 11/07/16 02:30 11/07/16 04:45 Urine Color YELLOW Urine Clarity CLEAR Urine pH 6.0 Urine Specific [place] 1.011 Urine Ketones NEGATIVE Urine Nitrite NEGATIVE Urine Bilirubin NEGATIVE Urine Urobilinogen 1+ H Urine Leukocyte Esterase TRACE A Urine Microscopic RBC 10 H Urine Microscopic WBC 10 H Urine Bacteria FEW A Urine Hemoglobin 1+ H Urine Random Creatinine 70.07 Urine Random Sodium 124 H Urine Glucose NEGATIVE Urine Total Protein 23.0 H White Blood Count 8.3 # Red Blood Count 3.25 L Hemoglobin 9.6 L Hematocrit 28.8 L Mean Corpuscular Volume 88.6 Mean Corpuscular Hemoglobin 29.5 Mean Corpuscular Hemoglobin Concent 33.3 Red Cell Distribution Width 12.3 Platelet Count 187 Mean Platelet Volume 11.5 H Neutrophils % 74.8 Lymphocytes % 16.5 Monocytes % 8.2 Eosinophils % 0.1 Basophils % 0.2 Nucleated Red Blood Cells % 0.0 Neutrophils # 6.2 Lymphocytes # 1.4 Monocytes # 0.7 Eosinophils # 0.0 Basophils # 0.0 Nucleated Red Blood Cells # 0.0 Sodium Level 137 Potassium Level 3.5 Chloride Level 105 Carbon Dioxide Level 24 Anion Gap 12 # Blood Urea Nitrogen 18 Creatinine 1.74 H Glucose Level 99 Calcium Level 8.6 Phosphorus Level 2.9 Magnesium Level 1.3 L Total Bilirubin 0.1 L Direct Bilirubin 0.00 Indirect Bilirubin 0.1 Aspartate Amino Transf (AST/SGOT) 34 # Alanine Aminotransferase (ALT/SGPT) 50 Alkaline Phosphatase 104 Total Protein 6.6 Albumin 3.9 Globulin 2.70 Albumin/Globulin Ratio 1.44 Medications Medications Current Medications Sodium Chloride (NS) 1,000 ml @ 75 mls/hr [id number] IV Last administered on 03:45; Admin Dose 75 MLS/HR; Start 11/05/16 at 21:12 Ondansetron HCl (Zofran Inj) 4 mg Q6H PRN IV NAUSEA AND/OR VOMITING; Start 11/05 at 21:30 Acetaminophen (Tylenol Tab) 650 mg Q6H PRN PO PAIN LEVEL 1-3 OR FEVER Last administered on 11/06/16 23:57; Admin Dose 650 MG; Start 11/05/16 at 21:30 Morphine Sulfate (morphine) 2 mg Q4H PRN IV SEVERE PAIN LEVEL 7-10; Start at 21:30 Heparin Sodium (Porcine) 5000 unit 5,000 unit BID SC Last administered on 08:30; Admin Dose 5,000 UNIT; Start 11/06/16 at 21:00 Ceftriaxone Sodium (Rocephin) 50 ml @ 100 mls/hr Q24H IVPB Last administered on 11/07/16 09:48; Admin Dose 100 MLS/HR; Start 11/06/16 at 10:00 Pantoprazole 40 mg 40 mg DAILY@06 PO Last administered on 11/07/16 05:50; Admin Dose 40 MG; Start 11/07/16 at 06:00 Magnesium Sulfate/ Sodium Chloride (Magnesium Sulfate/NS) 106 ml @ 35.333 mls/ hr ONCE ONCE IVPB ; Start 11/07/16 at 14:00; Stop 11/07/16 at 16:59 DANIEL FELIX MD Nov 07, 2016 13:07
[2016-11-07] MEDS ORDERED: LIDOCAINE 1% (MPF) 5 ML VIAL SC ONE ×2 (13:30→15:30)
[2016-11-07] MEDS ORDERED: MAGNESIUM SULFATE 3 GM in SOD CHLORIDE 0.9% 100 ML IVPB ONE (14:00)
[2016-11-07] MEDS: MEROPENEM 2 GM in SOD CHLORIDE 0.9% 100 ML IV SCH ×2 (15:16→22:56)
--- NOTE | 2016-11-07 16:07 | RADRPT ---
PROCEDURE: Ultrasound guidance for placement of needle in right upper extremity vein. CLINICAL INDICATION: Venous access. TECHNIQUE: Limited sonography of the right upper extremity was performed. Ultrasound images were recorded and stored in the patient's medical record. COMPARISON: None. FINDINGS: The ultrasound images demonstrate a patent right upper extremity vein. The PICC line was inserted b y the PICC line nurse. IMPRESSION: 1. Ultrasound guidance for a needle placement in a right upper extremity vein. 2. The visualized right upper extremity vein is patent. RPTAT: QQ .Johnathan Bains MD, MD Date Time Electronically viewed and signed by .Johnathan Bains MD, MD on 11/07/2016 16:07 .R/
--- NOTE | 2016-11-07 16:43 | RADRPT ---
PROCEDURE: XR Chest. CLINICAL INDICATION: Check PICC line position. TECHNIQUE: Single frontal view. COMPARISON: 11/05/2016. FINDINGS: There is a right arm PICC line with the tip in the lower superior vena cava. The lungs are clear. The heart size is normal. There is no pleural effusion. There is no pneumothorax. IMPRESSION: 1. Satisfactory position of right arm PICC line. 2. Otherwise normal chest radiograph. RPTAT: QQ .Johnathan Bains MD, MD Date Time Electronically viewed and signed by .Johnathan Bains MD, MD on 11/07/2016 16:43 .R/
[2016-11-07 21:53] VITALS: BP 114/67; RESP 20
[2016-11-08] MEDS: ACETAMINOPHEN 325 MG TAB PO PRN ×2 (04:05→13:28)
[2016-11-08 05:02] LABS: ADD SCAN DIFF NO
[2016-11-08 05:05] LABS: BASOPHILS % 0.3 % (0.0-2.0); EOSINOPHILS % 0.7 % (0.0-7.0); HEMATOCRIT 28.8 % (42.0-52.0); HEMOGLOBIN 9.5 g/dl (14.0-18.0); LYMPHOCYTES # 1.1 10^3/ul (0.8-2.9); LYMPHOCYTES % 19.6 % (15.0-51.0); MEAN CORPUSCULAR HEMOGLOBIN 29.1 pg (29.0-33.0); MEAN CORPUSCULAR VOLUME 88.1 fl (82.0-101.0); MEAN PLATELET VOLUME 11.5 fl (7.4-10.4); MONOCYTE # 0.5 10^3/ul (0.3-0.9); MONOCYTES % 8.1 % (0.0-11.0); NEUTROPHIL # 4.1 10^3/ul (1.6-7.5); PLATELET COUNT 215 10^3/UL (140-415); RED BLOOD COUNT 3.27 10^6/ul (4.70-6.10); RED CELL DISTRIBUTION WIDTH 12.3 % (11.5-14.5); WHITE BLOOD COUNT 5.8 10^3/ul (4.8-10.8)
[2016-11-08 05:45] LABS: CALCIUM 9.1 mg/dl (8.4-10.2); CREATININE 1.57 mg/dl (0.61-1.24); MAGNESIUM 1.4 mg/dl (1.7-2.5); PHOSPHORUS 2.7 mg/dl (2.5-4.9); POTASSIUM 3.5 mmol/L (3.5-5.1)
[2016-11-08 07:56] VITALS: BP 115/72; RESP 18
[2016-11-08] MEDS: MEROPENEM 2 GM in SOD CHLORIDE 0.9% 100 ML IV SCH ×2 (08:24→20:24)
[2016-11-08] MEDS: SOD CHLORIDE 0.9% 1,000 ML IV SCH (08:24)
[2016-11-08] MEDS: HEPARIN 5,000 UNIT/0.5 ML VIAL SC SCH ×2 (08:26→20:28)
--- NOTE | 2016-11-08 08:55 | PN ---
Date/Time of Note Date/Time of Note DATE: 11/08/16 TIME: 08:52 Assessment/Plan Lines/Catheters IV Catheter Type (from [facility]): PICC Line Urinary Cath still in place: No Assessment/Plan Chief Complaint/Hosp Course 1. Renal failure, possible AK I versus CKD. Underlying etiology is unclear can be secondary to pyelonephritis, ? nsaid use - Renal ultrasound shows no evidence of obstruction and normal renal parenchyma. -Repeat urinalysis shows improvement of pyuria. Urine protein creatinine ratio approximately 300 mg gram creatinine. -Renal function slowly improving plan -We will DC IV fluid -Continue treat underlying UTI. -Monitor closely 2. Recurrent UTI/pyelonephritis. -Continue antibiotics, consider urologic evaluation 3. Anemia monitor H&H levels 4. Mineral bone disorder monitor calcium phosphorus levels 5. Hypomagnesemia. Will replete with magnesium sulfate Problems: Subjective 24 Hr Interval Summary Free Text/Dictation Patient clinically stable. Afebrile. Tolerating p.o. Exam/Review of Systems Vital Signs Vitals Vital Signs Date Time Temp Pulse Resp B/P Pulse Ox O2 Delivery O2 Flow Rate FiO2 11/08/16 07:56 98.4 65 18 115/72 100 11/05/16 22:31 Room Air Intake and Output 11/07/16 11/07/16 11/08/16 15:00 23:00 07:00 Intake Total 525 ml 2000 ml 880 ml Balance 525 ml 2000 ml 880 ml Exam HEENT: Head is normocephalic. NECK: Supple. HEART: Regular rate LUNGS: Show diminished breath sounds at base. ABDOMEN: Soft, nontender to palpation without rebound or guarding. EXTREMITIES: Negative for clubbing, cyanosis. DERMATOLOGIC: No rashes. MUSCULOSKELETAL: No joint effusions, NEUROLOGIC: No change in exam. Results Result Diagram: 11/08/16 0430 11/08/16 0430 Results 24 hrs Laboratory Tests Test 11/08/16 04:30 White Blood Count 5.8 # Red Blood Count 3.27 L Hemoglobin 9.5 L Hematocrit 28.8 L Mean Corpuscular Volume 88.1 Mean Corpuscular Hemoglobin 29.1 Mean Corpuscular Hemoglobin Concent 33.0 Red Cell Distribution Width 12.3 Platelet Count 215 Mean Platelet Volume 11.5 H Neutrophils % 71.0 Lymphocytes % 19.6 Monocytes % 8.1 Eosinophils % 0.7 Basophils % 0.3 Nucleated Red Blood Cells % 0.0 Neutrophils # 4.1 Lymphocytes # 1.1 Monocytes # 0.5 Eosinophils # 0.0 Basophils # 0.0 Nucleated Red Blood Cells # 0.0 Sodium Level 140 Potassium Level 3.5 Chloride Level 101 Carbon Dioxide Level 24 Anion Gap 19 #H Blood Urea Nitrogen 16 Creatinine 1.57 H Glucose Level 104 Calcium Level 9.1 Phosphorus Level 2.7 Magnesium Level 1.4 L Medications Medications Current Medications Sodium Chloride (NS) 1,000 ml @ 50 mls/hr Q20H IV Last administered on 22:53; Admin Dose 50 MLS/HR; Start 11/05/16 at 21:12 Ondansetron HCl (Zofran Inj) 4 mg Q6H PRN IV NAUSEA AND/OR VOMITING; Start 11/05 at 21:30 Acetaminophen (Tylenol Tab) 650 mg Q6H PRN PO PAIN LEVEL 1-3 OR FEVER Last administered on 11/08/16 04:05; Admin Dose 650 MG; Start 11/05/16 at 21:30 Morphine Sulfate (morphine) 2 mg Q4H PRN IV SEVERE PAIN LEVEL 7-10; Start at 21:30 Heparin Sodium (Porcine) 5000 unit 5,000 unit BID SC Last administered on 08:26; Admin Dose 5,000 UNIT; Start 11/06/16 at 21:00 Meropenem/Sodium Chloride (Merrem/NS) 100 ml @ 200 mls/hr Q12 IV Last administered on 11/08/16 08:24; Admin Dose 200 MLS/HR; Start 11/07/16 at 15:00; Stop 11/16/16 at 21:29 IV Flush (NS 10 ml) 10 ml PRN PRN IV FLUSH LINE; Start 11/07/16 at 17:30 LASHAUN HERNANDEZ DO Nov 08, 2016 08:55
[2016-11-08] MEDS ORDERED: MAGNESIUM SULFATE 2 GM/50 ML 50 ML IVPB SCH (10:30)
[2016-11-08 13:34] LABS: MICROALBUMIN 3.9 mg/dL
--- NOTE | 2016-11-08 15:11 | DS ---
Date/Time of Note Date/Time of Note DATE: 11/08/16 TIME: 15:08 Discharge Summary Admission/Discharge Info Admit Date/Time Nov 05, 2016 at 21:20 Discharge Date/Time 11/08/16 Discharge Diagnosis Severe sepsis ESBL cystitis Anemia Hx of Present Illness Chief complaint: Urinary infection 2 weeks This is a 41-year-old male ambulatory to the emergency department complaining of a 2 week history of subjective fevers with dysuria, polyuria and bilateral flank pain. No hematuria. Denies nausea, vomiting or diarrhea. History of multiple previous urinary tract infections over the last several years, including one approximately 2 weeks ago which resolved on its own without any antibiotics.. Denies abdominal pain. Denies penile lesions, discharge, testicular pain or swelling. No skin rash. No swollen lymph nodes. No relieving or exacerbating factors. Allergies: NKDA medications: None Hospital Course 41-year-old gentleman admitted with recurrent UTI with sepsis and renal failure. Found to have ESBL growing in his urine. Presently stable and fit for discharge on PICC line with outpatient meropenem. PICC line may be removed once antibiotics have finished. I have put in referral for outpatient urology to reevaluate this gentleman with recurrent UTIs. Renal failure improved stable. Anemia Discharge plan Appointment primary 1 week Urology referral 2 weeks Diet: Regular Activity as tolerated DME PICC line CODE STATUS full Condition stable Barriers to discharge none Pending test none Functional status awake alert agrees to plan of care Reason for admission sepsis New medications Meropenem 2 g 3 times daily. Pharmacy may adjust dose. Tylenol as needed Home Meds Reported Medications Multivitamins* (Theragran*) 1 Tab Tab, 1 TAB PO DAILY, TAB 11/05/16 Acetaminophen* (Acetaminophen*) 325 Mg Tablet, 650 MG PO Q4H Y for PAIN AND OR ELEVATED TEMP, #30 TAB 11/05/16 Follow-up Plan Appointment primary 1 week Referral urology 2 weeks Primary Care Provider Care Physician No Primary Pending Labs Laboratory Tests Test 11/08/16 04:30 11/08/16 11:44 White Blood Count 5.810^3/ul (4.8-10.8) Red Blood Count 3.2710^6/ul (4.70-6.10) Hemoglobin 9.5g/dl (14.0-18.0) Hematocrit 28.8% (42.0-52.0) Mean Corpuscular Volume 88.1fl (82.0-101.0) Mean Corpuscular Hemoglobin 29.1pg (29.0-33.0) Mean Corpuscular Hemoglobin Concent 33.0g/dl (32.0-37.0) Red Cell Distribution Width 12.3% (11.5-14.5) Platelet Count 96071^3/UL (140-415) Mean Platelet Volume 11.5fl (7.4-10.4) Neutrophils % 71.0% (39.0-77.0) Lymphocytes % 19.6% (15.0-51.0) Monocytes % 8.1% (0.0-11.0) Eosinophils % 0.7% (0.0-7.0) Basophils % 0.3% (0.0-2.0) Nucleated Red Blood Cells % 0.0/100WBC (0.0-0.0) Neutrophils # 4.110^3/ul (1.6-7.5) Lymphocytes # 1.110^3/ul (0.8-2.9) Monocytes # 0.510^3/ul (0.3-0.9) Eosinophils # 0.010^3/ul (0.0-0.5) Basophils # 0.010^3/ul (0.0-0.1) Nucleated Red Blood Cells # 0.010^3/ul (0.0-0.0) Sodium Level 140mmol/L (135-144) Potassium Level 3.5mmol/L (3.5-5.1) Chloride Level 101mmol/L (97-110) Carbon Dioxide Level 24mmol/L (21-31) Anion Gap 19 (8-16) Blood Urea Nitrogen 16mg/dl (7-20) Creatinine 1.57mg/dl (0.61-1.24) Glucose Level 104mg/dl (70-220) Calcium Level 9.1mg/dl (8.4-10.2) Phosphorus Level 2.7mg/dl (2.5-4.9) Magnesium Level 1.4mg/dl (1.7-2.5) Lab Scanned Report REFERENCE [id number] DANIEL FELIX MD Nov 08, 2016 15:11
--- NOTE | 2016-11-08 15:12 | PDOCDIS ---
Discharge Instructions DIAGNOSIS Discharge Diagnosis Severe sepsis ESBL cystitis Anemia CONDITION Patient Condition: Stable ACTIVITY: Activity Restrictions: No Restrictions FOLLOW UP/APPOINTMENTS Follow-up Plan Appointment primary 1 week Urology 2 weeks Home health for PICC care. DANIEL FELIX MD Nov 08, 2016 15:12
[2016-11-08 20:29] VITALS: BP 103/55; RESP 20
== END 2016-11-08 21:55 | disposition home or self-care (01) | DRG 872 ==
LOC: FTE 16:18 → MS1 21:20
PROVIDERS: ADMIT Family Medicine; ATTEND Family Medicine
DX: A41.9 Sepsis, unspecified organism (principal); N17.9 Acute kidney failure, unspecified; I10 Essential (primary) hypertension; E78.5 Hyperlipidemia, unspecified; D64.9 Anemia, unspecified; E83.42 Hypomagnesemia; N30.90 Cystitis, unspecified without hematuria; B96.20 Unspecified Escherichia coli [E. coli] as the cause of diseases classified elsewhere; R65.20 Severe sepsis without septic shock
CPT/HCPCS: 36415; 36569; 71010; 74176; 76775; 76937; 80048; 80053; 80061; 81001; 81003; 82043; 82728; 83036; 83540; 83605; 83690; 83735; 83970; 84100; 84155; 84300; 84439; 84443; 85025; 85610; 85730; 87040; 87086; 87400; 87591; 96374; C9113; J0692; J0696; J1644; J1650; J1956; J2185; J2270; J3475; J7030; Q9967

== ENCOUNTER 2016-11-15 10:42 | Outpatient (CLI) | payer MEDICAID ==
[~2016-11-15] VITALS: Ht 167.6 cm; Wt 80.7 kg
[~2016-11-15 10:42] MED LIST: ACET325T45 PO; MULTI PO
[2016-11-15 10:46] VITALS: BP 120/77; PULSE 100; RESP 18; Ht 167.6 cm; Wt 80.7 kg
[2016-11-15] MEDS ORDERED: MERO1PIG IV (10:55)
--- NOTE | 2016-11-15 11:43 | PN ---
Date/Time of Note Date/Time of Note DATE: 11/15/16 TIME: 11:37 Outpatient Progress Note Chief Complaint Urosepsis/hyperlipidemia/anemia HPI Urosepsis/no fever chill, patient was recently admitted with urosepsis, no flank pain, patient did have flank pain, it is resolved, no frequency urgency, no suprapubic discomfort or distention, Hyperlipidemia/no xanthoma, no abdominal pain, Anemia/patient has slight weakness and tiredness, and sleepiness, no fever chill , no nausea vomiting, no hematemesis or melena, no ecchymoses bruises or bleeding, patient not on any medication, Review of Systems Const: No Fever, no chills, no Wt. loss, slight fatigue, normal appetite, no diaphoresis. Eyes: No pain, no discharge, no redness, no visual change, no foreign body. ENT: No pain, no bleeding, no congestion, no sore throat, no dysphagia, no discharge or rhinitis. Lymph: No adenopathy, no tender nodes, no lymphedema. Resp: No SOB, no cough, no sputum, no wheezing, no chest pain. CV: No chest pain, no palpitaions, no LEON, no PND, no edema. GI: Normal appetite, no pain, no nausea, no vomiting, no diarrhea, no blood, no constipation. : No frequency, no urgency, no dysuria, no hematuria, no flank pain, no discharge, no bleeding. Musc: No bone/joint pain, no back pain, no neck pain, no knee pain, no restricted ROM. Skin: No rash, no skin lesions, no erythema, no laceration, no bruising, no pruritus. Neuro: No LAMAR, no dizziness, no syncope, no seizure, no focal-weakness. Endo: No polyuria, no polydypsia, no dry-skin, no temp-intolerance. Psych: No hallucinations, no depression, no anxiety, no suicidal ideation. Ext: No edema, no pain, no ulcer, no weakness. Physical Exam Vital Signs Date Time Temp Pulse Resp B/P Pulse Ox O2 Delivery O2 Flow Rate FiO2 11/15/16 10:46 98.5 100 18 120/77 96 Room Air General Appearance: A 41 year-old male who appears well-developed, well- nourished, in no acute distress. HEENT: Head normocephalic, atraumatic. Pupils equal, round, reactive to light and accommodate. Sclerae are no jaundice. Nasal turbinates pink without erythema or nasal discharge. Mucous membranes pink and moist without lesions. Oropharynx clear without any exudate or discharge. NECK: Supple. Trachea midline, No thyromegaly, No cervical lymphadenopathy, No mass, No carotid bruits, No JVD, Carotid pulses 2+ bilaterally. PULMONARY: Clear to auscultaion bilaterally, No retractions, Chest expansion symmetric bilaterally, no rales, no ronchi, no dulness on percussion. CARDIAC: Normal SI and S2, Regular rate and rythm, no murmur, gallop, or rub. GASTROINTESTINAL: Abdomen is soft, non-tender, Non Rigid, No distention, Positive bowel sounds x4 quadrants, Liver normal. SKIN: Warm, dry, no rash, no bruise, no echmosis. EXTREMITIES: Bilateral lower extremities normal, no edema, no phlabitus, pulse palpable, no contracture. MUSCULOSKELETAL: Spine Normal, Non-tender, Normal range of motion, No swelling, no deformity, no clubbing, or cyanosis, the patient has no edema to bilateral lower extremities, dorsalis pedis pulses palpable bilaterally. NEUROLOGIC: The patient is awake, alert, oriented, responding to yes/no questions appropriately, moving all extremities, cranial nerve intact, normal strenght, normal power, normal coordination, normal gait. Allergies Coded Allergies: No Known Allergy (Unverified , 11/05/16) PMH Urosepsis/hyperlipidemia/anemia/flank pain Social Hx No smoking no drinking, no surgery, Family Hx Noncontributory Assessment/Plan Impression Urosepsis/hyperlipidemia/anemia Plan Patient has urosepsis, patient is on IV antibiotic, will continue IV antibiotic, Patient also still has anemia, last time hemoglobin was 9 .5, patient not on any medication, patient still feels slight weakness and tiredness, Ferrous sulfate 325 p.o. 3 times daily, Patient encouraged to follow with the primary care physician, Patient encouraged to continue all medication and IV antibiotic, increase activity slowly, Medications Home Meds Reported Medications Meropenem-0.9% Sodium Chloride (Meropenem-0.9% NaCl 1 Gram/50) 1 Gm/50 Ml Piggyback, 2 GM IV TID 11/15/16 Multivitamins* (Theragran*) 1 Tab Tab, 1 TAB PO DAILY, TAB 11/05/16 Acetaminophen* (Acetaminophen*) 325 Mg Tablet, 650 MG PO Q4H Y for PAIN AND OR ELEVATED TEMP, #30 TAB 11/05/16 LEIGHTON BRIGGS MD Nov 15, 2016 11:43
== END 2016-11-15 17:00 | disposition home or self-care (01) ==
LOC: DCC 10:42
PROVIDERS: ATTEND Internal Medicine
DX: N39.0 Urinary tract infection, site not specified (principal); E78.5 Hyperlipidemia, unspecified; D64.9 Anemia, unspecified

== ENCOUNTER → 2016-11-29 | Outpatient (CLI) | payer MEDICAID ==
[~2016-11-29] VITALS: Ht 167.6 cm; Wt 83.4 kg
[~2016-11-29] MED LIST changes: +MERO1PIG IV
[2016-11-29 11:51] VITALS: Ht 167.6 cm; Wt 83.4 kg
[2016-11-29 11:52] VITALS: BP 112/67; PULSE 74; RESP 16
--- NOTE | 2016-11-29 12:09 | PN ---
Date/Time of Note Date/Time of Note DATE: 11/29/16 TIME: 12:03 Outpatient Progress Note Chief Complaint Anemia/pyelonephritis/hyperlipidemia HPI Anemia/no weakness or tiredness, no hematemesis or melena, no bruises, no bleeding, Pyelonephritis/patient had a pyelonephritis, patient was recently hospitalized, patient finished meropenem, patient has been afebrile since completion of the antibiotic, no subjective complaints, Hyperlipidemia/no xanthoma, not on medication, patient advised to follow diet and follow with the primary care physician, for blood draw and follow the instruction, Review of Systems Const: No Fever, no chills, no Wt. loss, no Fatigue, normal appetite, no diaphoresis. Eyes: No pain, no discharge, no redness, no visual change, no foreign body. ENT: No pain, no bleeding, no congestion, no sore throat, no dysphagia, no discharge or rhinitis. Lymph: No adenopathy, no tender nodes, no lymphedema. Resp: No SOB, no cough, no sputum, no wheezing, no chest pain. CV: No chest pain, no palpitaions, no LEON, no PND, no edema. GI: Normal appetite, no pain, no nausea, no vomiting, no diarrhea, no blood, no constipation. : No frequency, no urgency, no dysuria, no hematuria, no flank pain, no discharge, no bleeding. Musc: No back pain, no neck pain, no knee pain, no restricted ROM. Skin: No rash, no skin lesions, no erythema, no laceration, no bruising, no pruritus. Neuro: No LAMAR, no dizziness, no syncope, no seizure, no focal-weakness. Endo: No polyuria, no polydypsia, no dry-skin, no temp-intolerance. Psych: No hallucinations, no depression, no anxiety, no suicidal ideation. Ext: No edema, no pain, no ulcer, no weakness. Physical Exam Vital Signs Date Time Temp Pulse Resp B/P Pulse Ox O2 Delivery O2 Flow Rate FiO2 11/29/16 11:52 98.5 74 16 112/67 96 Room Air General Appearance: A 41 year-old male who appears well-developed, well- nourished, in no acute distress. HEENT: Head normocephalic, atraumatic. Pupils equal, round, reactive to light and accommodate. Sclerae are no jaundice. PULMONARY: Clear to auscultaion bilaterally, No retractions, Chest expansion symmetric bilaterally, no rales, no ronchi, CARDIAC: Normal SI and S2, Regular rate and rythm, no murmur, gallop, or rub. GASTROINTESTINAL: Abdomen is soft, non-tender, Non Rigid, No distention, Positive bowel sounds x4 quadrants, Liver normal. SKIN: Warm, dry, no rash, no bruise, no echmosis. EXTREMITIES: Bilateral lower extremities normal, no edema, no phlabitus, pulse palpable, no contracture. MUSCULOSKELETAL: Spine Normal, Non-tender, Normal range of motion, No swelling, no deformity, no clubbing, or cyanosis, NEUROLOGIC: The patient is awake, alert, oriented, responding to yes/no questions appropriately, moving all extremities, cranial nerve intact, normal strenght, normal power, normal coordination, normal gait. Allergies Coded Allergies: No Known Allergy (Unverified , 11/05/16) PMH No change Social Hx No change Family Hx No change Assessment/Plan Impression Anemia resolved Pyelonephritis/ Hyperlipidemia Plan Patient has completed a course of antibiotic, patient feels stable, patient does not have any weakness or tiredness, patient has normal appetite, patient able to walk and work, patient also has no back pain, no fever after completion of the antibiotic, Patient encouraged to follow with the primary care physician, patient need CBC CMP and UA culture and sensitivity, patient needs to make sure patient is not not anemic and patient need to follow with the GI and primary care physician, workup depending on anemia status, Patient also encourage to follow with the diet, and controlled cholesterol, increase activity, Medications Home Meds Reported Medications Multivitamins* (Theragran*) 1 Tab Tab, 1 TAB PO DAILY, TAB 11/05/16 Acetaminophen* (Acetaminophen*) 325 Mg Tablet, 650 MG PO Q4H Y for PAIN AND OR ELEVATED TEMP, #30 TAB 11/05/16 Discontinued Reported Medications Meropenem-0.9% Sodium Chloride (Meropenem-0.9% NaCl 1 Gram/50) 1 Gm/50 Ml Piggyback, 2 GM IV TID 11/15/16 LEIGHTON BRIGGS MD Nov 29, 2016 12:09
== END | disposition home or self-care (01) ==
LOC: DCC 11:42
PROVIDERS: ATTEND Internal Medicine
DX: D64.9 Anemia, unspecified (principal); N12 Tubulo-interstitial nephritis, not specified as acute or chronic; E78.5 Hyperlipidemia, unspecified